=== PATIENT | female | born 1990 | race Hispanic/Latino ===

== ENCOUNTER 2017-03-15 17:10 | Emergency (ER) | payer OTHER ==
[2017-03-15] MEDS ORDERED: LIDOCAINE 1% 10 ML VIAL INJ ONE ×2 (17:18→17:42)
[2017-03-15] MEDS ORDERED: POVIDONE IODINE 10 % 15 ML UD TOP ONE (17:18)
[2017-03-15 17:27] VITALS: TEMP 97.8; O2SAT 100
[2017-03-15] MEDS ORDERED: TETANUS,DIPHTHERIA,PERTUSSIS 1 EA SYG IM ONE ×2 (17:42→17:44)
[2017-03-15] MEDS ORDERED: NEOMYCIN-BACITRACIN-POLYMYXIN 0.9 GM UD TOP ONE ×2 (17:42→17:43)
--- NOTE | 2017-03-15 17:46 | ED.PDOC ---
History of Present Illness - General Chief Complaint: Laceration Stated Complaint: laceration Time Seen by Provider: 03/15/17 17:27 Source: patient, RN notes reviewed, Vital Signs reviewed Exam Limitations: no limitations - History of Present Illness Initial Comments: Patient cut her left dorsal forearm on a piece of metal while playing in the yard. Timing/Duration: just prior to arrival Severity: mild Location: extremities - L dorsal forearm Improving Factors: other - compression Worsening Factors: nothing Associated Symptoms: denies symptoms Allergies/Adverse Reactions: Allergies NO KNOWN ALLERGY Allergy (Verified 03/15/17 17:22) Home Medications: Ambulatory Orders NK [NK] 03/15/17 Review of Systems - Review of Systems Constitutional: States: no symptoms reported Respiratory: States: no symptoms reported Cardiology: States: no symptoms reported Gastrointestinal/Abdominal: States: no symptoms reported Musculoskeletal: States: no symptoms reported Skin: States: see HPI Neurological: States: no symptoms reported. Denies: numbness, paresthesia, tingling, weakness All other Systems: No Change from Baseline Past Medical History (General) - Patient Medical History Hx Asthma: Yes Surgical History: no surgical history - Vaccination History Hx Influenza Vaccination: No Immunizations Up to Date: Yes - Social History Hx Tobacco Use: No Hx Alcohol Use: No Hx Substance Use: No Hx Substance Use Treatment: No Hx Depression: No - Activities of Daily Living Hospice Agency (if applicable):: None - Female History Patient is a Female of Child Bearing Age (10 -59 yrs old): Yes Patient : No Family Medical History - Family History Mother Family History: Unknown Physical Exam - Physical Exam General Appearance: Alert, Comfortable, No apparent distress, Well Developed, Well Groomed, Well Hydrated, Well Nourished Cardiovascular/Chest: normal peripheral pulses - with brisk capillary refill L fingers Respiratory: no respiratory distress, no accessory muscle use Extremity: normal range of motion, non-tender Neurologic: no motor/sensory deficits, alert, normal mood/affect, oriented x 3 Skin Exam: warm/dry, normal color Skin Problem Location: upper extremities - L dorsal forearm: 1.5cm laceration, linear, minimal bleeding, into subcutaneous tissue. Skin Character: linear Comments: Vital Signs - 24 hr 03/15/17 17:15 Temperature 97.8 F Pulse Rate [ 70 pulse ox] Respiratory 20 Rate Blood Pressure 105/65 [Right Arm] O2 Sat by Pulse 100 Oximetry Procedures - Laceration/Wound Repair Left Dorsal Arm Wound's Depth, Shape: superficial, linear Wound Explored: no foreign body removed Betadine Prep?: Yes Anesthesia: 1% Lidocaine Volume Anesthetic (cc's): 2 Wound Debrided: minimal Wound Repaired With: sutures Suture Size/Type: 4:0, prolene Number of Sutures: 3 Layer Closure?: No Sterile Dressing Applied?: Yes Splint Applied?: No Sling Applied?: No Departure - Departure Clinical Impression: Laceration of left forearm without complication Qualifiers: Encounter type: initial encounter Qualified Code(s): S51.812A - Laceration without foreign body of left forearm, initial encounter Time of Disposition: 17:48 Disposition: Discharge to Home or Self Care Condition: Good Departure Forms: ED Discharge - Pt. Copy, Patient Portal Self Enrollment Instructions: DI for Laceration Repair -- Simple Diet: resume usual diet Activity: increase activity as tolerated Home Medications: Ambulatory Orders NK [NK] 03/15/17 Additional Instructions: Follow up in 7 days for suture removal
[2017-03-15 18:10] VITALS: BP 97/68
== END 2017-03-15 18:10 | disposition home or self-care (01) ==
LOC: ER 17:10
DX: S51.812A Laceration without foreign body of left forearm, initial encounter (principal); Z23 Encounter for immunization; W45.8XXA Other foreign body or object entering through skin, initial encounter; Y92.007 Garden or yard of unspecified non-institutional (private) residence as the place of occurrence of the external cause